=== PATIENT | female | born 2000 | race Caucasian/White ===

== ENCOUNTER 2025-10-21 01:05 | Emergency (ER) | payer MEDICAID ==
[2025-10-21 02:03] LABS: BASOPHILS % 0.3 % (0.0-2.0); EOSINOPHILS % 0.8 % (0.0-5.0); HEMATOCRIT. 30.0 % (36.0-48.0); HEMOGLOBIN. 10.1 g/dL (12.0-16.0); LYMPHOCYTES % 19.0 % (20.0-50.0); MEAN PLATELET VOLUME 8.1 fl (7.4-10.4); MONOCYTES % 6.5 % (2.0-8.0); NEUTROPHILS % 73.4 % (40.0-76.0); PLATELET 353 x1000/uL (130-400); RED BLOOD CELL COUNT 3.27 mill/uL (4.2-5.4); RED CELL DISTRIBUTION WIDTH 13.8 % (11.6-14.6)
[2025-10-21] MEDS: ACETAMINOPHEN 500MG TABLET PO ONE (02:04)
[2025-10-21 02:11] LABS: CLARITY URINE CLOUDY (CLEAR); COLOR URINE YELLOW (YELLOW); GLUCOSE URINE NEGATIVE (NEGATIVE); KETONES URINE 2+ (NEGATIVE); LEUKOCYTE ESTERASE URINE 1+ (NEGATIVE); NITRITE URINE NEGATIVE (NEGATIVE); OCCULT BLOOD URINE NEGATIVE (NEGATIVE); PH URINE 6.5 (4.5-8.0); PROTEIN URINE TRACE (NEGATIVE); SPECIFIC GRAVITY URINE 1.020 (1.005-1.030); UROBILINOGEN URINE 1.0 E.U./dL (0.2-1.0)
[2025-10-21 02:16] LABS: INR 1.0
[2025-10-21 02:20] LABS: CREATININE 0.6 mg/dL (0.6-1.0)
[2025-10-21 02:21] LABS: ETHANOL BLOOD < 10 mg/dL (<10); UREA NITROGEN BLOOD 7 mg/dL (9-23)
[2025-10-21 02:22] LABS: PROTEIN TOTAL 6.7 g/dL (6.0-8.3)
[2025-10-21 02:23] LABS: BILIRUBIN TOTAL 0.6 mg/dL (0.1-1.0)
[2025-10-21 02:32] VITALS: BP 121/56; PULSE 89; RESP 19; TEMP 36.9; O2SAT 98
[2025-10-21 02:43] LABS: *AMPHETAMINES SCREEN URINE NEGATIVE (NEGATIVE); *BENZODIAZEPINES SCREEN URINE NEGATIVE (NEGATIVE)
[2025-10-21 02:45] LABS: *BARBITURATES SCREEN URINE NEGATIVE (NEGATIVE); *COCAINE SCREEN URINE NEGATIVE (NEGATIVE); CANNABINOID URINE SCREEN NEGATIVE (NEGATIVE); ECSTASY MDMA SCREEN URINE NEGATIVE (NEGATIVE); METHADONE URINE SCREEN NEGATIVE (NEGATIVE); OPIATES URINE SCREEN NEGATIVE (NEGATIVE); PHENCYCLIDINE URINE SCREEN NEGATIVE (NEGATIVE)
[2025-10-21 02:48] LABS: HCG SCREEN POSITIVE
[2025-10-21 03:00] LABS: ASPARTATE AMINOTRANSFERASE 59 IU/L (<34); BILIRUBIN DIRECT < 0.1 mg/dL (<=3.0)
[2025-10-21 03:27] LABS: B-HCG QUANTITATIVE 13199 mIU/mL (<6)
[2025-10-21 05:22] LABS: RBC URINE 0-2 /hpf (0-2); SQUAMOUS EPITHELIAL CELL URINE 3+ /lpf (RARE/1+); WBC URINE 0-2 /hpf (0-2)
[2025-10-21 05:25] LABS: BACTERIA URINE TRACE; CALCIUM OXALATE CRYSTALS URINE 1+ /lpf
== END 2025-10-21 02:48 | disposition short-term general hospital (02) ==
LOC: ER 01:05 → CMPBEDREQ 10:51
DX: O26.893 Other specified pregnancy related conditions, third trimester (principal); N13.30 Unspecified hydronephrosis; R10.31 Right lower quadrant pain; O21.2 Late vomiting of pregnancy; Z87.440 Personal history of urinary (tract) infections; Z79.899 Other long term (current) drug therapy; Z3A.32 32 weeks gestation of pregnancy
CPT/HCPCS: 99285; 76770; 80076; 80305; 80048; 81003; 82962; 84703; 84702; 83735; 85025; 85610; 85730; 86850; 86900; 86901; 76815; G0480; 80320